=== PATIENT | female | born 1980 | race Caucasian/White ===

== ENCOUNTER 2020-04-03 20:13 | Emergency (ER) | payer MEDICAID ==
[~2020-04-03] VITALS: Ht 160 cm; Wt 79.4 kg
[2020-04-03] MEDS ORDERED: ONDANSETRON 2MG/ML, 2ML ONE (20:34)
[2020-04-03] MEDS ORDERED: MORPHINE SULFATE 4 MG/ML, 1ML ONE (20:34)
--- NOTE | 2020-04-03 20:42 | NUR ---
PIV PLACED BY TASK RN, LABS DRAWN AND COLLECTED BY NOISE TESTER. MEDS ADMIN PER OCT. PT TO US.
[2020-04-03 20:50] LABS: BASOPHILS # (AUTO) 0.02 x10^3/uL (0-0.1); BASOPHILS % (AUTO) 0 % (0-1); EOSINOPHILS # (AUTO) 0.06 x10^3/uL (0-0.4); EOSINOPHILS % (AUTO) 1 % (1-7); LYMPHOCYTES # (AUTO) 0.94 x10^3/uL (1-3.4); LYMPHOCYTES % (AUTO) 9 % (22-44); MD NO; MEAN CORPUSCULAR HEMOGLOBIN 30.8 pg (27.0-34.8); MEAN CORPUSCULAR HGB CONC 33.4 g/dL (32.4-35.8); MEAN CORPUSCULAR VOLUME 92.4 fL (80-100); MEAN PLATELET VOLUME 10.6 fL (7.4-10.4); MONOCYTES # (AUTO) 0.34 x10^3/uL (0.2-0.8); MONOCYTES % (AUTO) 3 % (2-9); NEUTROPHILS # (AUTO) 8.87 x10^3/uL (1.8-6.8); NEUTROPHILS % (AUTO) 87 % (42-75); PLATELET COUNT 237 x10^3/uL (130-400); RED BLOOD COUNT 5.26 x10^6/uL (3.82-5.3); RED CELL DISTRIBUTION WIDTH 13.4 % (9.6-15.2)
[2020-04-03 20:56] LABS: ALANINE AMINOTRANSFERASE 26 U/L (12-78); ALBUMIN 4.1 g/dL (3.4-5.0); ANION GAP 7 mmol/L (5-15); CALCIUM 8.9 mg/dL (8.5-10.1); CHLORIDE 108 mmol/L (98-107); CREATININE 0.68 mg/dL (0.55-1.02)
[2020-04-03 21:00] LABS: ALKALINE PHOSPHATASE 76 U/L (45-117); BILIRUBIN,TOTAL 0.7 mg/dL (0.2-1.0); TOTAL PROTEIN 8.1 g/dL (6.4-8.2)
[2020-04-03] MEDS ORDERED: SODIUM CHLORIDE 0.9% 1,000ML IVBOLUS ONE (21:00)
[2020-04-03] MEDS ORDERED: ONDANSETRON 2MG/ML, 2ML IVPush ONE (21:00)
[2020-04-03] MEDS ORDERED: MORPHINE SULFATE 4 MG/ML, 1ML IVPush PRN (21:00)
[2020-04-03] MEDS ORDERED: SODIUM CHLORIDE FLUSH 10ML SYR IVF ONE (21:00)
--- NOTE | 2020-04-03 21:18 | NUR ---
PT STATES PAIN IS MUCH BETTER AFTER MEDS.
[2020-04-03] MEDS ORDERED: FAMOTIDINE 20 MG TABLET PO ONE (21:30)
[2020-04-03] MEDS ORDERED: FAMOTIDINE 20 MG TABLET ONE (21:31)
--- NOTE | 2020-04-03 21:34 | NUR ---
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 PT GIVEN WATER FOR PO CHALLENGE.
[2020-04-03 21:35] VITALS: BP 109/54
--- NOTE | 2020-04-03 21:47 | NUR ---
PT STATES SHE FEELS GOOD AFTER DRINKING WATER. DENIES N/V.
== END 2020-04-03 22:16 | disposition home or self-care (01) ==
LOC: ED 20:43
DX: R11.2 Nausea with vomiting, unspecified (principal); R10.13 Epigastric pain; R19.7 Diarrhea, unspecified
CPT/HCPCS: 36415; 76700; 80053; 83690; 84703; 85025; 96361; 96374; 96375; 99284; J2270; J2405; J7030